=== PATIENT | male | born 1995 | race Caucasian/White ===

== ENCOUNTER 2016-09-19 17:40 | Emergency (ER) | payer OTHER ==
[2016-09-19] MEDS ORDERED: ONDANSETRON 4 MG ORAL DISINTEGRATING TAB (S0181) As Ordered ONE (19:04)
[2016-09-19] MEDS ORDERED: ACETAMINOPHEN 325 MG TAB As Ordered ONE (19:04)
--- NOTE | 2016-09-19 20:05 | EDDOCDS ---
Physician Documentation [facility] Name: Guillermo Montgomery Age: 21 yrs Sex: Male : 1995 Arrival Date: 09/19/2016 Time: 17:40 Bed TR7 [facility] Disposition: 09/19/16 19:34 Discharged to Home/Self Care. Impression: Vomiting, Diarrhea, unspecified. - Condition is Stable. - Discharge Instructions: Food Choices to Help Relieve Diarrhea, Adult, Nausea and Vomiting. - Prescriptions for ZOFRAN ODT 4 mg Oral - dissolve 1 tablet by ORAL route 4 times per day As needed do not chew, do not swallow whole; 20 tablet. - Medication Reconciliation, Local Pharmacy Hours form. - [facility]; When: Call to arrange an appointment; Reason: Recheck today's complaints, Continuance of care. - Problem is new. - Symptoms are unchanged. Historical: - Allergies: Septra; - Home Meds: 1. Alavert 10 mg oral tab 1 tab once daily - PMHx: seasonal allergies; - PSHx: none; - Social history: Smoking status: Patient states was never smoker of tobacco. No barriers to communication noted, The patient speaks fluent Mohawk, Speaks appropriately for age. - : The pt / caregiver states he / she is not on anticoagulants. Home medication list is obtained from the patient. - Exposure Risk Screening:: None identified. Vital Signs: 09/19 17:42 BP 131 / 74; Pulse 103; Resp 20; Temp 99.8(O); Pulse Ox 97% on R/A; Weight 61.23 kg / elp 134.99 lbs (R); Height 5 ft. 7 in. (170.18 cm) (R); 19:39 BP 131 / 69; Pulse 84; Resp 18; Temp 97.5(O); Pulse Ox 98% on R/A; Pain 0/10; ct3 17:42 Body Mass Index 21.14 (61.23 kg, 170.18 cm) elp MDM: 19:01 Ondansetron ODT Oral Disintegrating Tablet 4 mg PO once ordered. mo1 19:01 Fluid Challenge ordered. mo1 19:02 Acetaminophen Tablet 975 mg PO once ordered. mo1 19:56 Financial registration complete. gjb Administered Medications: 19:07 Drug: Ondansetron ODT 4 mg [ondansetron 4 mg disintegrating tablet (1 tabs)] Route: PO; kcs : Drug: Acetaminophen 975 mg [acetaminophen 325 mg tablet (3 tabs)] Route: PO; kcs Signatures: Todd Victoria RN RN ms2 Kirsten East RN RN jo3 Yfn Delgadillo PA PA mo1 Beck, Gabriela gjb Sleeman, Kacey RN kcs MTDD
--- NOTE | 2016-09-19 20:05 | EDDOCDS ---
Nurse's Notes [facility] Name: Guillermo Montgomery Age: 21 yrs Sex: Male : 1995 Arrival Date: 09/19/2016 Time: 17:40 Bed TR7 [facility] Diagnosis: Vomiting;Diarrhea, unspecified Presentation: 09/19 17:55 Presenting complaint: Patient states: Vomiting every hour since 0700. Denies abdominal jo3 pain. also reports diarrhea. Adult Sepsis Screening: The patient does not have new or worsening altered mentation. Patient's respiratory rate is less than 22. Systolic blood pressure is greater than 100. Patient has a qSOFA score of 0- Negative Sepsis Screen. Suicide/Homicide risk assessment- the patient denies having any suicidal and/or homicidal ideations and does not present with any other emotional, behavioral or mental health complaints. 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 Transition of care: patient was not received from another setting of care. 17:55 Acuity: MERA Level 3 jo3 17:55 Method Of Arrival: Walkin/Carried/Asstd jo3 Triage Assessment: 17:57 General: Appears in no apparent distress, Behavior is appropriate for age, cooperative, jo3 pleasant. Pain: Denies pain. HIV screening NA for this visit Offered previously. Neurological: Level of Consciousness is awake, alert, Oriented to person, place, time. Respiratory: No deficits noted. Airway is patent Respiratory effort is even, unlabored. Historical: - Allergies: Septra; - Home Meds: 1. Alavert 10 mg oral tab 1 tab once daily - PMHx: seasonal allergies; - PSHx: none; - Social history: Smoking status: Patient states was never smoker of tobacco. No barriers to communication noted, The patient speaks fluent [place], Speaks appropriately for age. - : The pt / caregiver states he / she is not on anticoagulants. Home medication list is obtained from the patient. - Exposure Risk Screening:: None identified. Vital Signs: 17:42 BP 131 / 74; Pulse 103; Resp 20; Temp 99.8(O); Pulse Ox 97% on R/A; Weight 61.23 kg elp (R); Height 5 ft. 7 in. (170.18 cm) (R); 19:39 BP 131 / 69; Pulse 84; Resp 18; Temp 97.5(O); Pulse Ox 98% on R/A; Pain 0/10; ct3 17:42 Body Mass Index 21.14 (61.23 kg, 170.18 cm) elp Vitals: 17:42 Log In Time: September 19, 2016 at 17:40. elp ED Course: 17:41 Patient visited by Marcelle Youssef PCA. elp 17:41 Other - Complete Info On Cds is Private Physician. elp 17:41 [facility] is Private Physician. elp 17:41 Patient moved to Waiting elp 17:42 Patient visited by Marcelle Youssef PCA. elp 17:42 Patient moved to Pre RCE elp 17:56 Triage Initiated jo3 17:57 Patient visited by Kirsten East,JESUS. jo3 18:32 Patient moved to Triage 3 ct3 18:35 Patient visited by Sydnee Lund,JESUS. ck1 18:48 [facility] mo1 18:48 Peng Lopez MD is Attending Physician. mo1 18:58 Patient visited by Yfn Delgadillo PA. mo1 19:08 Patient moved to PR2 / 26 ct3 19:34 [facility] is Referral Physician. mo1 19:39 Patient visited by Katie Orozco PCA. ct3 19:55 Patient moved to TR7 ms2 Administered Medications: 19:07 Drug: Ondansetron ODT 4 mg [ondansetron 4 mg disintegrating tablet (1 tabs)] Route: PO; kcs 19:07 Drug: Acetaminophen 975 mg [acetaminophen 325 mg tablet (3 tabs)] Route: PO; kcs Order Results: There are currently no results for this order. Outcome: 19:34 Discharge ordered by Provider. mo1 20:05 Patient left the ED. ms2 Signatures: Portia Rivas RN RN kcs Sobkiewicz, Michele, RN RN ms2 Sydnee Lund RN RN ck1 Kirsten East RN RN jo3 Katie Orozco PCA CLINICAL RESEARCH ADMINISTRATOR ct3 Yfn Delgadillo PA PA mo1 Marcelle Youssef PCA CLINICAL RESEARCH ADMINISTRATOR elp MTDD
--- NOTE | 2016-09-21 21:06 | EDDOCDS ---
Physician Documentation [facility] Name: Guillermo Montgomery Age: 21 yrs Sex: Male : 1995 Arrival Date: 09/19/2016 Time: 17:40 Bed TR7 [facility] Disposition: 09/19/16 19:34 Discharged to Home/Self Care. Impression: Vomiting, Diarrhea, unspecified. - Condition is Stable. - Discharge Instructions: Food Choices to Help Relieve Diarrhea, Adult, Nausea and Vomiting. - Prescriptions for ZOFRAN ODT 4 mg Oral - dissolve 1 tablet by ORAL route 4 times per day As needed do not chew, do not swallow whole; 20 tablet. - Medication Reconciliation, Local Pharmacy Hours form. - [facility]; When: Call to arrange an appointment; Reason: Recheck today's complaints, Continuance of care. - Problem is new. - Symptoms are unchanged. Historical: - Allergies: Septra; - Home Meds: 1. Alavert 10 mg oral tab 1 tab once daily - PMHx: seasonal allergies; - PSHx: none; - Social history: Smoking status: Patient states was never smoker of tobacco. No barriers to communication noted, The patient speaks fluent Croatian, Speaks appropriately for age. - Family history: Not pertinent. - : The pt / caregiver states he / she is not on anticoagulants. Home medication list is obtained from the patient. - Exposure Risk Screening:: None identified. Vital Signs: 09/19 17:42 BP 131 / 74; Pulse 103; Resp 20; Temp 99.8(O); Pulse Ox 97% on R/A; Weight 61.23 kg / elp 134.99 lbs (R); Height 5 ft. 7 in. (170.18 cm) (R); 19:39 BP 131 / 69; Pulse 84; Resp 18; Temp 97.5(O); Pulse Ox 98% on R/A; Pain 0/10; ct3 17:42 Body Mass Index 21.14 (61.23 kg, 170.18 cm) elp MDM: 19:01 Ondansetron ODT Oral Disintegrating Tablet 4 mg PO once ordered. mo1 19:01 Fluid Challenge ordered. mo1 19:02 Acetaminophen Tablet 975 mg PO once ordered. mo1 19:56 Financial registration complete. gjb 20:27 [facility] Payment Agreement was scanned into [employer] and attached to record. [facility] 09/20 13:39 T-Sheet-- Draft Copy was scanned into [employer] and attached to record. gb Administered Medications: 09/19 19:07 Drug: Ondansetron ODT 4 mg [ondansetron 4 mg disintegrating tablet (1 tabs)] Route: PO; kcs 19:07 Drug: Acetaminophen 975 mg [acetaminophen 325 mg tablet (3 tabs)] Route: PO; kcs Signatures: Todd Victoria,RN RN ms2 Denice Nolan, Reg Reg gb Kirsten East RN RN jo3 Yfn Delgadillo PA PA mo1 Beck, Gabriela gjb Sleeman, Kacey RN kcs The chart was reviewed and I authenticate all verbal orders and agree with the evaluation and treatment provided.Attachments: 20:27 [facility] Payment Agreement [facility] 09/20 13:39 T-Sheet-- Draft Copy gb Chart Complete MTDD
--- NOTE | 2016-09-21 21:07 | EDDOCDS ---
Physician Documentation [facility] Name: Guillermo Montgomery Age: 21 yrs Sex: Male : 1995 Arrival Date: 09/19/2016 Time: 17:40 Bed TR7 [facility] Disposition: 09/19/16 19:34 Discharged to Home/Self Care. Impression: Vomiting, Diarrhea, unspecified. - Condition is Stable. - Discharge Instructions: Food Choices to Help Relieve Diarrhea, Adult, Nausea and Vomiting. - Prescriptions for ZOFRAN ODT 4 mg Oral - dissolve 1 tablet by ORAL route 4 times per day As needed do not chew, do not swallow whole; 20 tablet. - Medication Reconciliation, Local Pharmacy Hours form. - [facility]; When: Call to arrange an appointment; Reason: Recheck today's complaints, Continuance of care. - Problem is new. - Symptoms are unchanged. Historical: - Allergies: Septra; - Home Meds: 1. Alavert 10 mg oral tab 1 tab once daily - PMHx: seasonal allergies; - PSHx: none; - Social history: Smoking status: Patient states was never smoker of tobacco. No barriers to communication noted, The patient speaks fluent Frisian, Speaks appropriately for age. - Family history: Not pertinent. - : The pt / caregiver states he / she is not on anticoagulants. Home medication list is obtained from the patient. - Exposure Risk Screening:: None identified. Vital Signs: 09/19 17:42 BP 131 / 74; Pulse 103; Resp 20; Temp 99.8(O); Pulse Ox 97% on R/A; Weight 61.23 kg / elp 134.99 lbs (R); Height 5 ft. 7 in. (170.18 cm) (R); 19:39 BP 131 / 69; Pulse 84; Resp 18; Temp 97.5(O); Pulse Ox 98% on R/A; Pain 0/10; ct3 17:42 Body Mass Index 21.14 (61.23 kg, 170.18 cm) elp MDM: 19:01 Ondansetron ODT Oral Disintegrating Tablet 4 mg PO once ordered. mo1 19:01 Fluid Challenge ordered. mo1 19:02 Acetaminophen Tablet 975 mg PO once ordered. mo1 19:56 Financial registration complete. gjb 20:27 [facility] Payment Agreement was scanned into [employer] and attached to record. [facility] 09/20 13:39 T-Sheet-- Draft Copy was scanned into [employer] and attached to record. gb Administered Medications: 09/19 19:07 Drug: Ondansetron ODT 4 mg [ondansetron 4 mg disintegrating tablet (1 tabs)] Route: PO; kcs 19:07 Drug: Acetaminophen 975 mg [acetaminophen 325 mg tablet (3 tabs)] Route: PO; kcs Signatures: Todd Victoria,RN RN ms2 Denice Nolan, Reg Reg gb Kirsten East RN RN jo3 Yfn Delgadillo PA PA mo1 Beck, Gabriela gjb Sleeman, Kacey RN kcs The chart was reviewed and I authenticate all verbal orders and agree with the evaluation and treatment provided.Attachments: 20:27 [facility] Payment Agreement [facility] 09/20 13:39 T-Sheet-- Draft Copy gb Chart Complete MTDD
--- NOTE | 2016-09-21 21:07 | EDDOCDS ---
Nurse's Notes [facility] Name: Guillermo Montgomery Age: 21 yrs Sex: Male : 1995 Arrival Date: 09/19/2016 Time: 17:40 Bed TR7 [facility] Diagnosis: Vomiting;Diarrhea, unspecified Presentation: 09/19 17:55 Presenting complaint: Patient states: Vomiting every hour since 0700. Denies abdominal jo3 pain. also reports diarrhea. Adult Sepsis Screening: The patient does not have new or worsening altered mentation. Patient's respiratory rate is less than 22. Systolic blood pressure is greater than 100. Patient has a qSOFA score of 0- Negative Sepsis Screen. Suicide/Homicide risk assessment- the patient denies having any suicidal and/or homicidal ideations and does not present with any other emotional, behavioral or mental health complaints. 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 Transition of care: patient was not received from another setting of care. 17:55 Acuity: MERA Level 3 jo3 17:55 Method Of Arrival: Walkin/Carried/Asstd jo3 Triage Assessment: 17:57 General: Appears in no apparent distress, Behavior is appropriate for age, cooperative, jo3 pleasant. Pain: Denies pain. HIV screening NA for this visit Offered previously. Neurological: Level of Consciousness is awake, alert, Oriented to person, place, time. Respiratory: No deficits noted. Airway is patent Respiratory effort is even, unlabored. Historical: - Allergies: Septra; - Home Meds: 1. Alavert 10 mg oral tab 1 tab once daily - PMHx: seasonal allergies; - PSHx: none; - Social history: Smoking status: Patient states was never smoker of tobacco. No barriers to communication noted, The patient speaks fluent Ethiopian, Speaks appropriately for age. - Family history: Not pertinent. - : The pt / caregiver states he / she is not on anticoagulants. Home medication list is obtained from the patient. - Exposure Risk Screening:: None identified. Assessment: 20:05 General: Appears in no apparent distress, Behavior is cooperative. Neurological: Level ms2 of Consciousness is awake, alert, obeys commands. Respiratory: No deficits noted. Airway is patent Respiratory effort is even, unlabored, Respiratory pattern is regular, symmetrical. GI: Abdomen is flat, non- distended. Derm: Skin is pink, warm & dry. Musculoskeletal: Range of motion intact in all extremities. Vital Signs: 17:42 BP 131 / 74; Pulse 103; Resp 20; Temp 99.8(O); Pulse Ox 97% on R/A; Weight 61.23 kg elp (R); Height 5 ft. 7 in. (170.18 cm) (R); 19:39 BP 131 / 69; Pulse 84; Resp 18; Temp 97.5(O); Pulse Ox 98% on R/A; Pain 0/10; ct3 17:42 Body Mass Index 21.14 (61.23 kg, 170.18 cm) el Vitals: 17:42 Log In Time: September 19, 2016 at 17:40. elp ED Course: 17:41 Patient visited by Marcelle Youssef PCA. elp 17:41 Other - Complete Info On Cds is Private Physician. elp 17:41 [facility] is Private Physician. elp 17:41 Patient moved to Waiting elp 17:42 Patient visited by Marcelle Youssef PCA. elp 17:42 Patient moved to Pre RCE elp 17:56 Triage Initiated jo3 17:57 Patient visited by Kirsten East,JESUS. jo3 18:32 Patient moved to Triage 3 ct3 18:35 Patient visited by Sydnee Lund,JESUS. ck1 18:48 Yfn Delgadillo PA is PHCP. mo1 18:48 Peng Lopez MD is Attending Physician. mo1 18:58 Patient visited by Yfn Delgadillo PA. mo1 19:08 Patient moved to PR2 / 26 ct3 19:34 [facility] is Referral Physician. mo1 19:39 Patient visited by Katie Orozco PCA. ct3 19:55 Patient moved to TR7 ms2 19:55 No IV's were initiated during this patient's visit. No procedures done that require ms2 assistance. 20:05 The patient / caregiver is instructed regarding the plan of care and ED course. ms2 20:27 [facility] Payment Agreement was scanned into [employer] and attached to record. gjb 09/20 13:39 T-Sheet-- Draft Copy was scanned into [employer] and attached to record. gb Administered Medications: 09/19 19:07 Drug: Ondansetron ODT 4 mg [ondansetron 4 mg disintegrating tablet (1 tabs)] Route: PO; kcs 19:07 Drug: Acetaminophen 975 mg [acetaminophen 325 mg tablet (3 tabs)] Route: PO; kcs Order Results: There are currently no results for this order. Outcome: 19:34 Discharge ordered by Provider. mo1 20:05 Patient left the ED. ms2 20:05 Discharge Assessment: patient administered narcotics - no. The following High Risk ms2 Discharge criteria are identified: None. Discharged to home ambulatory. Condition: stable. Discharge instructions given to patient, Instructed on discharge instructions, follow up and referral plans. medication usage, Demonstrated understanding of instructions, medications, Pt was receptive of discharge instructions/ teaching. Prescriptions given X one faxed. No special radiology studies were completed. Property sent home with patient. Signatures: Portia Rivas, RN RN kcs Todd Victoria RN RN ms2 Denice Nolan, Reg Reg gb Sydnee LundRN RN ck1 Kirsten East RN RN jo3 Katie Orozco, RETORT LOAD EXPEDITER RETORT LOAD EXPEDITER ct3 Yfn Delgadillo PA PA mo1 Marcelle Youssef, RETORT LOAD EXPEDITER RETORT LOAD EXPEDITER elp Shirley Huitron Chart Complete MTDD
== END 2016-09-19 20:05 | disposition home or self-care (01) ==
LOC: M ED 17:40
DX: R11.2 Nausea with vomiting, unspecified (principal); R19.7 Diarrhea, unspecified; R10.13 Epigastric pain; J30.2 Other seasonal allergic rhinitis; Z79.899 Other long term (current) drug therapy; Z88.1 Allergy status to other antibiotic agents